=== PATIENT | female | born 2005 | race Caucasian/White ===

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

== ENCOUNTER 2025-01-25 08:45 | Outpatient (RCR) | payer BC, SELFPAY ==
[2025-01-25 11:58] VITALS: BMI 21.0
--- NOTE | 2025-01-25 12:25 | PC.ADMIT ---
Patient is a 20 year old partnered female who self referred to [facility] secondary to increased depression and anxiety sxs. Patient unable to identify a precipitant. 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 Patient identified supports stating, my mom my dad, my boyfriend and his family. Patient is alert and oriented x4. She is calm and cooperative. She presented with depressed mood and affect. She denied SI, no HI. Patient has a history of self harm by cutting her L arm or thighs. Reports last self harmed was a month ago. Patient received a copy of her safety plan if needed. Patient reports history of heavy use of alcohol ages [age] and cocaine use ages [age]. Denied history of withdrawal sxs. Patient is currently using Marijuana smoking a joint daily prior to bedtime. Medications updated with patient and patient's pharmacy.
[2025-01-25 12:26] VITALS: BP 118/70; PULSE 64; TEMP 37.1
--- NOTE | 2025-01-26 09:42 | HO.PHP ---
Addendum entered by Joi Polanco [facility] 01/26/25 10:22: received a callback from Jorge - wellness check was preformed and there was no one home at the residence. At 1000 received a callback from Vane- she reported that Ara is safe and does not want to continue in the program. [employer] Shift Manager requested a callback from Ara to proceed with discharging from the program. Original Note: [employer] Shift Manager attempted to call Ara twice due to her not being in attendance for morning meeting, a voicemail was left each time requesting a callback. attempted to contact her listed emergency contact- Vane, left a voicemail informing Vane that if there was not a return call made to , the next proceedure would be calling for a wellness check by the local PD. No return call was received from Ara or Vane, contacted [facility] ([phone]) to request a wellness check be preformed. spoke with safety security officer- Baljit who reported that the [facility] would be preforming a wellness check and report back to program.
--- NOTE | 2025-01-30 15:02 | HO.PHP ---
Molding Cutter attempted to make contact with Ramonita approximately 4 times without making contact, Ara was discharged from the program
== END 2025-01-25 23:59 | disposition home or self-care (01) ==
LOC: HO.PHPA 08:45
PROVIDERS: Visit Provider Psychiatry & Neurology Psychiatry
DX: F33.1 Major depressive disorder, recurrent, moderate (principal); F90.9 Attention-deficit hyperactivity disorder, unspecified type; F41.1 Generalized anxiety disorder
CPT/HCPCS: 90791; 90853